=== PATIENT | male | born 1995 ===

== ENCOUNTER 2021-12-31 08:53 | Outpatient (CLI) | payer OTHER | END 2021-12-31 09:20 | disposition home or self-care (01) | LOC: TOM 08:53 | PROVIDERS: ATTEND Orthopaedic Surgery | DX: S82.841A Displaced bimalleolar fracture of right lower leg, initial encounter for closed fracture (principal) ==

== ENCOUNTER → 2022-01-10 | Outpatient (CLI) | payer OTHER | END | disposition home or self-care (01) | LOC: RAD 13:22 | PROVIDERS: ATTEND Orthopaedic Surgery | DX: S82.844A Nondisplaced bimalleolar fracture of right lower leg, initial encounter for closed fracture (principal) ==

== ENCOUNTER 2022-01-12 12:17 | Outpatient (CLI) | payer OTHER | END 2022-01-12 12:22 | disposition home or self-care (01) | LOC: LAB 12:17 | PROVIDERS: ATTEND Orthopaedic Surgery | DX: D64.9 Anemia, unspecified (principal); D68.8 Other specified coagulation defects; N39.0 Urinary tract infection, site not specified; E11.9 Type 2 diabetes mellitus without complications; I10 Essential (primary) hypertension; Z76.89 Persons encountering health services in other specified circumstances ==

== ENCOUNTER 2022-01-17 05:56 | Day surgery (SDC) | payer OTHER ==
[~2022-01-17] VITALS: Ht 162.6 cm; Wt 63.5 kg
== END 2022-01-17 12:45 | disposition home or self-care (01) ==
LOC: CIR.AMB 05:56
PROVIDERS: ATTEND Orthopaedic Surgery
DX: S82.841A Displaced bimalleolar fracture of right lower leg, initial encounter for closed fracture (principal); Z88.6 Allergy status to analgesic agent; Z88.0 Allergy status to penicillin; Z20.822 Contact with and (suspected) exposure to COVID-19
CPT/HCPCS: 27814; 20902; 27695; L8699

== ENCOUNTER → 2022-10-10 | Outpatient (CLI) | payer OTHER | END | disposition home or self-care (01) | LOC: RAD 09:21 | PROVIDERS: ATTEND Orthopaedic Surgery | DX: S82.841D Displaced bimalleolar fracture of right lower leg, subsequent encounter for closed fracture with routine healing (principal) ==